=== PATIENT | male | born 1965 | race Caucasian/White ===

== ENCOUNTER 2020-05-08 23:52 | Inpatient (IN) | payer MEDICAID, SELFPAY ==
[~2020-05-08] VITALS: Ht 177.8 cm; Wt 74.8 kg
--- NOTE | 2020-05-09 | NUR ---
ED Nurse Note: Patient brought into the ED by [facility] for medical clearance due to chest pain. Pain is 4/10, sternal and non radiating per patient. Patient is uncooperative and refuses to answer questions. Patient denies SOB/, nausea/vomiting, fever and chills. Patient denies injury/trauma. Patient is AAOX4 and ambulatory
--- NOTE | 2020-05-09 00:05 | NUR ---
ED Nurse Note: ERMD seen patient
[2020-05-09 00:10] VITALS: BP 130/77
--- NOTE | 2020-05-09 00:10 | NUR ---
ED Nurse Note: Patient is constantly arguing with officer from [facility] to remove his handcuffs. Patient purposely threw himself on the floor from the chair. Patient was assisted to get up and was sat on the chair. No LOC, vision changes, nausea noted. Patient is AAOX4. ERMD notified. CT scan ordered
--- NOTE | 2020-05-09 00:20 | NUR ---
ED Nurse Note: Blood sent to lab
[2020-05-09 00:53] LABS: BASOPHILS % (AUTO) 1.5 % (0.0-2.0); HEMATOCRIT 33.9 % (42.0-52.0); HEMOGLOBIN 11.1 G/DL (14.2-18.0); MEAN CORPUSCULAR VOLUME 68 FL (80-99); NEUTROPHILS % (AUTO) 66.5 % (45.0-75.0); PLATELET COUNT 312 K/UL (150-450); RED BLOOD COUNT 5.03 M/UL (4.70-6.10); RED CELL DISTRIBUTION WIDTH 19.7 % (11.6-14.8); WHITE BLOOD COUNT 7.3 K/UL (4.8-10.8)
[2020-05-09 00:55] LABS: ANION GAP 5 mmol/L (5-15); BLOOD UREA NITROGEN 19 mg/dL (7-18); CALCIUM 8.8 MG/DL (8.5-10.1); CARBON DIOXIDE 33 MMOL/L (21-32); CHLORIDE 102 MMOL/L (98-107); POTASSIUM 3.5 MMOL/L (3.5-5.1); SODIUM 140 MMOL/L (136-145)
[2020-05-09 00:59] LABS: ALANINE AMINOTRANSFERASE 15 U/L (12-78); ALBUMIN 3.8 G/DL (3.4-5.0); ALKALINE PHOSPHATASE 114 U/L (46-116); ASPARTATE AMINO TRANSFERASE 24 U/L (15-37); BILIRUBIN,TOTAL 0.2 MG/DL (0.2-1.0)
--- NOTE | 2020-05-09 01:15 | NUR ---
ED Nurse Note: Ct scan done
--- NOTE | 2020-05-09 01:19 | Diagnostic Imaging Report ---
EXAM: CT Head Without Intravenous Contrast CLINICAL HISTORY: FALL TECHNIQUE: Axial computed tomography images of the head/brain without intravenous contrast. CTDI is 53.40 mGy and DLP is 1392.80 mGy-cm. One or more of the following dose reduction techniques were used: automated exposure control, adjustment of the mA and/or kV according to patient size, use of iterative reconstruction technique. COMPARISON: No relevant prior studies available. FINDINGS: Brain: No hemorrhage or mass effect. Ventricles: No hydrocephalus. Bones/joints: Mildly displaced nasal bone fracture, age indeterminate. Soft tissues: Unremarkable. Sinuses: Unremarkable. Mastoid air cells: Clear. IMPRESSION: No acute hemorrhage, hydrocephalus, or mass effect. Mildly displaced nasal bone fracture, age indeterminate.
--- NOTE | 2020-05-09 01:42 | Emergency Room Report ---
History of Present Illness General Chief Complaint: Medical Clearance Source: Patient Present Illness HPI 54-year-old male with past medical history of CAD status post CABG in 2005, hypertension, dyslipidemia, drug abuse brought in by PD for substernal chest pressure that occurred while he was getting arrested. He states that the pressure is nonprovoked, nonradiating, and worse with exertion. Also associated with nausea but no vomiting. Denies shortness of breath, cough, hemoptysis, fever, chills, back pain, abdominal pain, hematuria, melena, hematochezia, headache, back pain or any other symptoms. The patient's symptoms were gradual onset, severity was moderate, duration since less than 1 day. Quality: Pressure Past medical history: CAD, hypertension, dyslipidemia, drug abuse Past surgical history: CABG Smoking: Positive Alcohol use: Denies Drug use: Positive meth Review of systems: CONST: No fevers or chills, No night sweats PULMONARY: No productive cough, No shortness of breath CARDIAC: Positive chest pain, No palpitations GI: No vomiting, No diarrhea , No melena_or_BRBPR : No dysuria, No hematuria, No discharge NEURO: No new_focal_weakness_or_numbness, No confusion, No vision changes 14 point Review of Systems is otherwise negative except per HPI Physical Exam: GENERAL: Awake_alert_ nontoxic, no acute distress Spo2 96% on RA -normal. EYES: Extraocular muscles are intact. Conjunctivae clear. Lids without swelling ENT: External nose and ear normal_in_appearance. Oropharynx clear. Head_atraumatic, Moist_oral_mucosa No Nasal septal hematoma. NECK: No JVD. No meningismus. No thyromegaly. Supple. Trachea midline RESP: Normal respiratory effort. Symmetric rise. No stridor. Clear_to_auscultation_No_rales_No_wheezes CARDIAC: tachycardic and regular rhytm. Mild 1+_symmetric pedal edema. Negative Homans' sign ABDOMEN: Soft. Nondistended. Nontender_No_rebound_or_guarding. no palpable or pulsatile abdominal mass MSK: Normal muscle tone, without rigidity. Extremities without asymmetric deformity or swelling. SKIN: CABG scar. Warm and dry. No visible cyanosis or pallor. No petechiae NEUROLOGIC: Alert, oriented x3. Motor_and_sensation_grossly_intact. No truncal ataxia. Gait_normal Psych: Normal mood and affect, normal judgment and insight - COORDINATION OF CARE Case was discussed with: Patient , Patient's Physician Any labs and imaging that were ordered were interpreted as part of the medical decision making: Medical Decision Making/Plan: Differential diagnosis includes acute myocardial infarction, acute coronary syndrome and unstable angina, pulmonary embolism, pneumothorax, pneumonia, and aortic dissection, among others. Patient is currently well appearing with stable vitals. Mildly tachycardic, likely from anxiety. Patient is screaming profanities. EKG shows left ventricular hypertrophy with strain pattern. He has ST segment changes without STEMI in the inferior leads. No evidence of STEMI, and initial troponin is negative. Chest xray shows no acute disease. No evidence of pneumothorax, pneumonia, or significant pleural effusion. Labs show troponin negative x1 Aspirin given. However, given that chest pain is currently resolved, risks likely outweigh benefits of IV heparin at this time, so deferred. The pain is not classic for pericarditis or myocarditis, and the patient has no significant risk factors for a pericardial effusion and has stable vitals signs, unlikely to have tamponade. Pain is not likely to be pulmonary embolism, patient has no significant PE risk factors. The presentation is not consistent with dissection, pain is not severe, radiating to back, or tearing in nature. Has normal bilateral radial and pedal pulses. However given patients presentation and risk factors, patient will be admitted for serial troponins and risk stratification and evaluation for likely stress testing. HEART score > 4 This patient appears to be a suitable candidate for transfer to telemetry floor at this time with orders from the admitting physician who is aware of the patient's evaluation, ancillary test findings, and current condition, and agrees with treatment and disposition. I spoke with Dr Duenas who agrees to admit the patient and resume care Allergies: Coded Allergies: No Known Allergies (Unverified , 05/09/20) COVID-19 Screening Contact w/high risk pt: No Experienced COVID-19 symptoms?: No COVID-19 Testing performed FLIGHT TEST ENGINEER: No Nursing Documentation-[facility] Past Medical History: No History, Except For Hx COPD: Yes Physical Exam Vital Signs Date Time Temp Pulse Resp B/P (MAP) Pulse Ox O2 Delivery O2 Flow Rate FiO2 05/08/20 23:55 97.2 106 20 130/77 (94) 96 Room Air Sp02 EP Interpretation: reviewed, normal Medical Decision Making Diagnostic Impression: Primary Impression: Chest pain Additional Impressions: HTN (hypertension) S/P CABG x 3 Anemia Nasal bone fracture EKG Diagnostic Results Troponin ordered: Yes When was troponin ordered?: May 09, 2020 PINA Mai 12-lead EKG (interpreted by me) Time: 0027 Indication: Rhythm analysis Tracing visualized and Interpreted by me. Rhythm: Normal sinus rhythm Rate: 94 bpm QTc: 445 Morphology: No_significant_ST_elevations_or_depressions, No STEMI Impression: Normal_sinus_rhythm_without_significant_abnormality Q waves inferior leads Rhythm Strip Diag. Results Rhythm Strip Time: 03:08 EP Interpretation: yes Rate: 94 Rhythm: NSR, no PVC's, no ectopy Chest X-Ray Diagnostic Results Chest X-Ray Diagnostic Results : PINA Davisibroya Text Chest X-Ray: Views: [ 1 ] view(s) Indication: Chest pain Findings: CABG. CM. Mediastinum normal. No infiltrate. Impression: CABG The X-ray(s) were independently viewed and interpreted contemporaneously Electronically signed by Domitila ruffin DO Reevaluation Time: 03:08 Last Vital Signs Date Time Temp Pulse Resp B/P (MAP) Pulse Ox O2 Delivery O2 Flow Rate FiO2 05/09/20 00:10 106 20 Room Air 05/09/20 00:10 97.2 130/77 96 Status: improved Disposition: ADMITTED INPATIENT - ERASED Admit Decision Time: 01:42 Condition: Stable Referrals: NOT CHOSEN IPA/MD,REFERRING (PCP) Domitila Astudillo D.O. May 09, 2020 01:42
[2020-05-09] MEDS ORDERED: Nitroglycerin 2% oint pkt TOPIC ONE (01:45)
[2020-05-09 02:54] VITALS: BP 125/84
--- NOTE | 2020-05-09 02:54 | NUR ---
ED Nurse Note: Report given to KUSHAL DIANE
[2020-05-09 04:22] VITALS: BP 131/78
--- NOTE | 2020-05-09 05:28 | NUR ---
ED Nurse Note: MRSA,VRE,CRE swabs sent
--- NOTE | 2020-05-09 05:49 | NUR ---
ED Nurse Note: Report given to BLANCHE DASH
[2020-05-09 05:50] VITALS: BP 134/67
--- NOTE | 2020-05-09 05:51 | NUR ---
TRANSFER TO FLOOR: Patient transferred to TELE via gurney with magisterial district judge accompanied by RN. Belongings given and checked with RN. Patient transported safely to bed and endorsed to RN
--- NOTE | 2020-05-09 06:15 | NUR ---
NURSE NOTES: RECEIVED REPORT FROM EKTA CASTILLO FROM ED. PT ALERT/ORIENTED X3, ABLE TO MAKE NEEDS KNOWN. NO RESP DISTRESS, ON ROOM AIR SATING 96%. 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 NO C/O PAIN OR DISTRESS NOTED. PT AMBULATED FROM GURNEY TO BED WITH SLOW STEADY GAIT. BELONGINGS LIST CHECKED WITH ED NURSE. ORIENTED PT TO ROOM & UNIT. BED IN LOW POSITION & LOCKED. SIDE RAILS UP X2. CALL LIGHT WITH IN REACH. BED ALARM ON.
--- NOTE | 2020-05-09 06:15 | NUR ---
NURSE NOTES: v/s bp 127/66, p 90, rr 18, o2 sat 97% at room air, temp 97.7
--- NOTE | 2020-05-09 07:09 | NUR ---
NURSE HAND-OFF REPORT: Important Events on Shift:[admitted from er for cp/ r/o acs] Patient Status: [] Diet: [] Pending Orders: [] Pending Results/Labs:[] Pending MD notification:[] Latest Vital Signs: Temperature 97.4 , Pulse 95 , B/P 134 /67 , Respiratory Rate 20 , O2 SAT 98 , Room Air, O2 Flow Rate . Vital Sign Comment: [] EKG Rhythm: Rhythm change?: MD Notified?: - MD Response: Latest Campos Fall Score: Fall Risk: Safety Measures: Call light , Bed Alarm , Side Rails , Bed position . Fall Precautions: Report given to [EKTA PEREZ].
--- NOTE | 2020-05-09 07:56 | NUR ---
CASE MANAGEMENT:REVIEW BROUGHT IN BY POLICE CC: CHEST PAIN PMH: CABG SI: ACS. ANEMIA 97.1 106 20 130/77 96% ON RA TROPONIN(-) IS: ASA PO NITRO 1" CT HEAD CXR : TO TELEMETRY PLAN: 2DECHO STRESS TEST
[2020-05-09] MEDS ORDERED: Nitroglycerin Subl 0.4mg tab SL PRN (08:00)
[2020-05-09] MEDS ORDERED: Heparin 5000 units/ml inj SUBQ SCH (08:00)
[2020-05-09] MEDS ORDERED: Lexiscan 0.4mg/5ml syringe IV PRN (08:00)
--- NOTE | 2020-05-09 08:00 | NUR ---
NURSE NOTES: Report received from May DASH. Patient admitted from ER via gurney transport, AxOx4, on room air. Not in distress, no complaints of chest pain. Vitals stable and sinus rhythm on tele monitor. PIV on left arm patent and intact. Pt has open wound on left heel, dry dressing noted over left foot. All admission orders verified with Dr. Duenas. Pt on NPO for pending stress test. Bed low and locked, siderails up x2, call light within reach. Will continue with plan of care.
--- NOTE | 2020-05-09 08:29 | NUR ---
NURSE NOTES: Patient left and signed out against medical advice. PIV removed. Pt belongings given to patient but patient refused to sign inventory list. Dr. Duenas notified.
[2020-05-09] MEDS ORDERED: Aspirin Baby 81mg NG SCH (09:00)
--- NOTE | 2020-05-09 17:15 | Diagnostic Imaging Report ---
Indication: Chest pain Technique: One view of the chest Comparison: none Findings: The heart size is upper limits of normal. Lungs pleural spaces are clear. There is evidence of prior median sternotomy. Impression: No acute process
--- NOTE | 2020-05-10 13:01 | Cardiology Report ---
APPROVED REPORT EKG Measurement Heart [id number] <Conclusion> Normal sinus rhythm Right atrial enlargement Rightward axis Pulmonary disease pattern Left ventricular hypertrophy with repolarization abnormality Inferior infarct, age undetermined Abnormal ECG
--- NOTE | 2020-05-11 11:23 | Discharge Summary ---
Discharge Summary Discharge Summary _ DATE OF ADMISSION: May 09, 2020 DATE OF DISCHARGE: May 09, 2020 ADMITTING MD: Dr. Blayne Duenas BRIEF HOSPITAL COURSE: The patient is a 54-year-old male with medical history of CAD status post CABG in 2006, hypertension, dyslipidemia, drug abuse, was brought in by police department due to substernal chest pressure that occurred while he was being arrested. Pressure was nonprovoked, nonradiating and worse with exertion. It was associated with nausea but no vomiting. He denies shortness of breath, cough, hemoptysis, fever, chills, back pain, abdominal pain, hematuria, melena, hematochezia, headache, back pain and any other symptom. Severity was moderate. Duration of less than 1 day. Onset was gradual. At ED, he had stable vital signs although mildly tachycardic. Patient was screaming profanity. EKG showed left ventricular hypertrophy with strain pattern. He had ST segment changes without ST MAREK in the inferior leads. No evidence of STEMI. Initial troponin was negative. Chest x-ray did not show any acute disease. Troponin was negative. He was given aspirin. Patient was admitted to telemetry. Admission orders were given. Patient was placed on n.p.o. for pending stress test. Full treatment was not carried out as patient left AGAINST MEDICAL ADVICE. FINAL DIAGNOSES: Chest pain Hypertension Status post CABG x3 Anemia Nasal bone fracture DISPOSITION: Patient left AMA. I have been assigned to complete a discharge summary on this account, I was not involved with the patient's management.--DOMINGA Mckinley Jacqueline Robles NP May 11, 2020 11:23
--- NOTE | 2020-05-11 13:52 | NUR ---
CASE MANAGEMENT: Faxed clinical info (face sheet /DC summary) to [facility] @ [phone]. T: 2019 [phone]
--- NOTE | 2020-05-11 14:50 | History & Physical ---
History and Physical History & Physicial Patient left AMA before seen. Radha Bradley NP May 11, 2020 14:49
== END 2020-05-09 08:30 | disposition left against medical advice (07) | DRG 198 ==
LOC: EMR 23:59 → 2E 05-09 03:47 → EDBEDREQ 05-09 05:02
DX: R07.89 Other chest pain (principal); I10 Essential (primary) hypertension; I25.10 Atherosclerotic heart disease of native coronary artery without angina pectoris; Z95.1 Presence of aortocoronary bypass graft; D64.9 Anemia, unspecified; S02.2XXA Fracture of nasal bones, initial encounter for closed fracture; X58.XXXA Exposure to other specified factors, initial encounter; E78.5 Hyperlipidemia, unspecified
CPT/HCPCS: 36415; 70450; 71045; 80053; 83690; 84484; 85025; 87081; 93005; 99285; G0480